=== PATIENT | female | born 1995 | race African-American/Black ===

== ENCOUNTER 2018-07-19 11:29 | Emergency (ER) | payer OTHER, MEDICAID ==
--- NOTE | 2018-07-19 13:15 | ER Document Report ---
ED Medical Screen (RME) - General Chief Complaint: Fainting Stated Complaint: SYNCOPE Time Seen by Provider: 07/19/18 13:13 Notes: Patient is a 22-year-old female, , 13 weeks gravid that presents to the emergency department for chief complaint of black out episode. Patient states she had a similar episode about 2 weeks ago, and then again today while she was at her chemistry class, she did not fall or hit her head, she was seen previo usly for this and did not have an answer of why it was occurring. Denies having any pain at this time. ROS: Other than noted above, the 12 point review of systems was reviewed with the patient and were negative, all pertinent findings are included in the HPI. PHYSICAL EXAMINATION: Vital signs reviewed. GENERAL: Well-appearing, well-nourished and in no acute distress. HEAD: Atraumatic, normocephalic. EYES: Pupils equal round extraocular movements intact, conjunctiva are normal. ENT: Nares patent NECK: Normal range of motion CV: Heart regular rate and rhythm LUNGS: No respiratory distress Musculoskeletal: Normal range of motion NEUROLOGICAL: Normal speech PSYCH: Normal mood, normal affect. MDM: Patient seen and examined for rapid initial assessment. Vital signs reviewed. A comprehensive ED assessment and evaluation of the patient, analysis of test results and completion of the medical decision making process will be conducted by additional ED providers. *Note is created using voice recognition software and may contain spelling, syntax or grammatical errors. TRAVEL OUTSIDE OF THE [place] IN LAST 30 DAYS: No - Related Data Allergies/Adverse Reactions: cephalexin [From Keflex] Allergy (Verified 07/19/18 11:32) Penicillins Allergy (Verified 07/19/18 11:32) Past Medical History - Social History Chew tobacco use (# tins/day): No Frequency of alcohol use: None Drug Abuse: None Renal/ Medical History: Denies: Hx Peritoneal Dialysis Physical Exam - Vital signs Vitals: Temp Pulse Resp BP Pulse Ox 98.3 F 94 16 119/75 100 07/19/18 11:53 07/19/18 11:53 07/19/18 11:53 07/19/18 11:53 07/19/18 11:53 Course - Vital Signs Vital signs: Temp Pulse Resp BP Pulse Ox 98.3 F 94 16 119/75 100 07/19/18 11:53 07/19/18 11:53 07/19/18 13:04 07/19/18 11:53 07/19/18 11:53
[2018-07-19 13:30] LABS: APPEARANCE,URINE CLEAR; BILIRUBIN,URINE NEGATIVE (NEGATIVE); COLOR,URINE STRAW; GLUCOSE, URINE NEGATIVE (NEGATIVE); KETONES,URINE NEGATIVE (NEGATIVE); LEUKOCYTE ESTERASE,URINE NEGATIVE (NEGATIVE); NITRITE,URINE NEGATIVE (NEGATIVE); PROTEIN,URINE NEGATIVE (NEGATIVE); URINE SPECIFIC GRAVITY 1.008; UROBILINOGEN,URINE NEGATIVE mg/dL (<2.0)
[2018-07-19] MEDS ORDERED: RINGERS SOLUTION,LACTATED 1,000 ML IV ONE (14:37)
[2018-07-19 14:56] LABS: ALANINE AMINOTRANSFERASE 45 U/L (9-52); ALBUMIN 3.8 g/dL (3.5-5.0); ALKALINE PHOSPHATASE 53 U/L (38-126); ANION GAP 7 (5-19); ASPARTATE AMINO TRANSFERASE 31 U/L (14-36); BILIRUBIN,DIRECT 0.3 mg/dL (0.0-0.4); BILIRUBIN,TOTAL 0.4 mg/dL (0.2-1.3); BLOOD UREA NITROGEN 7 mg/dL (7-20); CALCIUM 9.1 mg/dL (8.4-10.2); CARBON DIOXIDE 21 mmol/L (22-30); CHLORIDE 108 mmol/L (98-107); GLUCOSE 86 mg/dL (75-110); POTASSIUM 4.9 mmol/L (3.6-5.0); SODIUM 135.8 mmol/L (137-145)
[2018-07-19 15:09] LABS: FREE T4 (FREE THYROXINE) 1.02 ng/dL (0.78-2.19)
--- NOTE | 2018-07-19 15:22 | ER Document Report ---
ED General - General Chief Complaint: Fainting Stated Complaint: SYNCOPE Time Seen by Provider: 07/19/18 13:13 Primary Care Provider: RODOLFO HARRISON MD [Primary Care Provider] - Follow up as needed Mode of Arrival: Ambulatory Information source: Patient, [facility] Records Notes: 22-year-old female with no reported past medical history at approximately 13 weeks per last menstrual period presents after a syncopal episode. Patient states that this has occurred multiple times since . She has discussed this with her OB but after a normal EKG she states no further workup was performed. Patient denies recent illness, fever, chills, persistent vomiting. Patient states that she was sitting in chemistry class when it happened. She does report preceding chest pressure prior to this event that lasted approximately 10 seconds and resolved. Patient denies any leg swelling, shortness of breath, prior history of PE, DVT. She states she was passed out for approximately 5 seconds. [facility] She reports multiple ultrasounds that showed an intrauterine . She states in the beginning of her she was suffering from significant abdominal pain which caused him to consistently monitor the . Patient denies any abdominal pain today or vaginal bleeding. TRAVEL OUTSIDE OF THE [place] IN LAST 30 DAYS: No - HPI Onset: Just prior to arrival Onset/Duration: Sudden Quality of pain: No pain Severity: None Pain Level: Denies Associated symptoms: denies: Chest pain, Nonproductive cough, Diarrhea, Fever, Leg swelling, Nausea, Vomiting, Shortness of breath, Sore throat, Sweating, Weakness - Related Data Allergies/Adverse Reactions: cephalexin [From Keflex] Allergy (Verified 07/19/18 11:32) Penicillins Allergy (Verified 07/19/18 11:32) Past Medical History - General Information source: Patient, [facility] Records - Social History Smoking Status: Never Smoker Chew tobacco use (# tins/day): No Frequency of alcohol use: None Drug Abuse: None Lives with: Spouse/Significant other Family History: Reviewed & Not Pertinent Patient has suicidal ideation: No Patient has homicidal ideation: No - Medical History Medical History: Negative Renal/ Medical History: Denies: Hx Peritoneal Dialysis Review of Systems - Review of Systems Notes: REVIEW OF SYSTEMS: CONSTITUTIONAL : Denies fever, chills, or sweats. Denies recent illness. Denies weight loss, recent hospitalizations. EENT: Denies visual changes, eye pain. Denies sore throat, oral lesions, difficulty swallowing. CARDIOVASCULAR: Denies palpitations. Denies lower extremity edema. RESPIRATORY: Denies cough. Denies shortness of breath, wheezing. GASTROINTESTINAL: Denies abdominal pain or distention. Denies nausea, vomiting, or diarrhea. Denies blood in vomitus, stools, or per rectum. Denies black, tarry stools. Denies constipation. GENITOURINARY: Denies difficulty urinating, painful urination, frequency, blood in urine, or vaginal discharge. MUSCULOSKELETAL: Denies back or neck pain or stiffness. Denies joint pain or swelling. SKIN: Denies rash, lesions or sores. HEMATOLOGIC : Denies easy bruising or bleeding. LYMPHATIC: Denies swollen glands. NEUROLOGICAL: Denies confusion or altered mental status. Denies dizziness or lightheadedness. Denies headache. Denies weakness or paralysis. Denies problems difficulty with ambulation, slurred speech. Denies sensory loss, numbness, or tingling. Denies seizures. PSYCHIATRIC: Denies anxiety or stress. Denies depression, suicidal ideation, or homicidal ideation. Denies visual or auditory hallucinations. Physical Exam - Vital signs Vitals: Temp Pulse Resp BP Pulse Ox 98.3 F 94 16 119/75 100 07/19/18 11:53 07/19/18 11:53 07/19/18 11:53 07/19/18 11:53 07/19/18 11:53 - Notes Notes: PHYSICAL EXAMINATION: GENERAL: Well-appearing, well-nourished and in no acute distress. HEAD: Atraumatic, normocephalic. EYES: Pupils equal round and reactive to light, extraocular movements intact, conjunctiva are normal. ENT: Nares patent, oropharynx clear without exudates. Moist mucous membranes. NECK: Normal range of motion, supple without lymphadenopathy LUNGS: Breath sounds clear to auscultation bilaterally and equal. No wheezes rales or rhonchi. HEART: Regular rate and rhythm without murmurs ABDOMEN: Soft, nontender, nondistended abdomen. No guarding, no rebound. No masses appreciated. Female : deferred Musculoskeletal: Normal range of motion, no pitting or edema. No cyanosis. NEUROLOGICAL: Cranial nerves grossly intact. Normal speech, normal gait. Normal sensory, motor exams PSYCH: Normal mood, normal affect. SKIN: Warm, Dry, normal turgor, no rashes or lesions noted. Course - Re-evaluation Re-evalutation: Temp Pulse Resp BP Pulse Ox 98.3 F 86 16 120/75 100 07/19/18 11:53 07/19/18 14:35 07/19/18 13:04 07/19/18 14:35 07/19/18 11:53 Laboratory 07/19/18 07/19/18 07/19/18 12:15 14:28 14:28 WBC Cancelled RBC Cancelled Hgb Cancelled Hct Cancelled MCV Cancelled MCH Cancelled MCHC Cancelled RDW Cancelled Plt Count Cancelled Seg Neutrophils % Cancelled Lymphocytes % Cancelled Monocytes % Cancelled Eosinophils % Cancelled Basophils % Cancelled Absolute Neutrophils Cancelled Absolute Lymphocytes Cancelled Absolute Monocytes Cancelled Absolute Eosinophils Cancelled Absolute Basophils Cancelled Platelet Estimate Cancelled Sodium 135.8 L Potassium 4.9 Chloride 108 H Carbon Dioxide 21 L Anion Gap 7 BUN 7 Creatinine 0.38 L Est GFR ( Amer) > 60 Est GFR (Non-Af Amer) > 60 Glucose 86 Calcium 9.1 Magnesium 1.8 Total Bilirubin 0.4 Direct Bilirubin 0.3 Neonat Total Bilirubin Not Reportable Neonat Direct Bilirubin Not Reportable Neonat Indirect Bili Not Reportable AST 31 ALT 45 Alkaline Phosphatase 53 Troponin I Total Protein 7.0 Albumin 3.8 TSH Free T4 Urine Color STRAW Urine Appearance CLEAR Urine pH 6.0 Ur Specific Ola 1.008 Urine Protein NEGATIVE Urine Glucose (UA) NEGATIVE Urine Ketones NEGATIVE Urine Blood NEGATIVE Urine Nitrite NEGATIVE Urine Bilirubin NEGATIVE Urine Urobilinogen NEGATIVE Ur Leukocyte Esterase NEGATIVE Urine WBC (Auto) 1 Urine RBC (Auto) 0 Squamous Epi Cells Auto 1 Urine Mucus (Auto) RARE Urine Ascorbic Acid NEGATIVE Slides for Path Review Cancelled 07/19/18 07/19/18 07/19/18 14:28 15:15 15:15 WBC 8.9 RBC 4.42 Hgb 12.8 Hct 36.9 MCV 84 MCH 28.9 MCHC 34.6 RDW 13.6 Plt Count 276 Seg Neutrophils % 71.6 Lymphocytes % 20.6 Monocytes % 6.9 Eosinophils % 0.7 Basophils % 0.2 Absolute Neutrophils 6.4 Absolute Lymphocytes 1.8 Absolute Monocytes 0.6 Absolute Eosinophils 0.1 Absolute Basophils 0.0 Platelet Estimate Sodium Potassium Chloride Carbon Dioxide Anion Gap BUN Creatinine Est GFR ( Amer) Est GFR (Non-Af Amer) Glucose Calcium Magnesium Total Bilirubin Direct Bilirubin Neonat Total Bilirubin Neonat Direct Bilirubin Neonat Indirect Bili AST ALT Alkaline Phosphatase Troponin I < 0.012 Total Protein Albumin TSH 1.47 Free T4 1.02 Urine Color Urine Appearance Urine pH Ur Specific Ola Urine Protein Urine Glucose (UA) Urine Ketones Urine Blood Urine Nitrite Urine Bilirubin Urine Urobilinogen Ur Leukocyte Esterase Urine WBC (Auto) Urine RBC (Auto) Squamous Epi Cells Auto Urine Mucus (Auto) Urine Ascorbic Acid Slides for Path Review Temp Pulse Resp BP Pulse Ox 98.3 F 86 16 120/75 100 07/19/18 11:53 07/19/18 14:35 07/19/18 13:04 07/19/18 14:35 07/19/18 14:35 07/19/18 15:21 22-year-old female presents after a syncopal episode while at school. Vital signs reviewed and within normal limits. Patient is orthostatic positive. Patient denies any black or bloody stools. Patient does have a history of anemia but today hemoglobin is stable. IV fluids administered. EKG does show the patient to be in normal sinus rhythm at a rate of 85. QTc 424 QRS 86. No evidence of ischemia, ST elevation. CBC, CMP, cardiac enzymes, thyroid levels are within normal limits. Patient did receive IV fluids. I am reevaluation she states that she is feeling much better. I advised that the patient should not drive until reevaluated by her primary care physician and OB. Patient denies any abdominal pain, vaginal bleeding. Patient encouraged to drink more fluids, eat more regularly. On reevaluation patient is eating, normally. She is requesting discharge home. Patient was evaluated and treated as appropriate for the patient's presenting symptoms and complaint, with consideration of any critical or life threatening conditions that may be associated with their obtained history and exam as noted above. All results were discussed with patient and her significant other who is at the bedside. Patient provided the opportunity to ask questions, and express concerns. Patient was educated on treatments based on their presumed diagnosis as noted above. At this time we will discharge the patient with return precautions and follow-up recommendations. Verbal discharge instructions given a the bedside. Medication warnings reviewed. Patient is in agreement with this plan and has verbalized understanding of return precautions. After careful consideration I feel that that patient can be safely discharged from the emergency department, they were advised to followup with a primary care physician in 2-3 days. Dictation on this chart was performed using voice recognition software and may result in unintended grammatical, spelling, syntax or errors. 07/20/18 00:48 - Vital Signs Vital signs: Temp Pulse Resp BP Pulse Ox 98.3 F 86 16 120/75 100 07/19/18 11:53 07/19/18 14:35 07/19/18 13:04 07/19/18 14:35 07/19/18 14:35 - Laboratory Result Diagrams: 07/19/18 15:15 07/19/18 14:28 Laboratory results interpreted by me: 07/19/18 14:28 Sodium 135.8 L Chloride 108 H Carbon Dioxide 21 L Creatinine 0.38 L - EKG Interpretation by Me EKG shows normal: Sinus rhythm Rate: Normal Rhythm: NSR When compared to previous EKG there are: No significant change Discharge - Discharge Clinical Impression: Orthostatic hypotension, Second trimester Syncope Qualifiers: Syncope type: unspecified Qualified Code(s): R55 - Syncope and collapse Condition: Good Disposition: HOME, SELF-CARE Instructions: Orthostatic Hypotension ([facility]), Syncopal Episode ([facility]) Additional Instructions: Please drink plenty of fluids. Please do not drive until reevaluated by OB and your primary care physician. Please return with any abdominal pain, vaginal bleeding or any other symptoms concerning to you. Referrals: RODOLFO HARRISON MD [Primary Care Provider] - Follow up as needed
[2018-07-19 15:23] LABS: THYROID STIMULATING HORMONE 1.47 uIU/mL (0.47-4.68)
[2018-07-19 15:39] LABS: ABSOLUTE EOSINOPHILS # (AUTO) 0.1 10^3/uL (0.0-0.6); ABSOLUTE LYMPHOCYTES (AUTO) 1.8 10^3/uL (0.5-4.7); ABSOLUTE MONOCYTES (AUTO) 0.6 10^3/uL (0.1-1.4); ABSOLUTE NEUT (AUTO) 6.4 10^3/uL (1.7-8.2); BASOPHILS % (AUTO) 0.2 % (0-2); EOSINOPHILS % (AUTO) 0.7 % (0-6); HEMATOCRIT 36.9 % (36.0-47.0); HEMOGLOBIN 12.8 g/dL (12.0-15.5); LYMPHOCYTES % (AUTO) 20.6 % (13-45); MEAN CORPUSCULAR HEMOGLOBIN 28.9 pg (27.0-33.4); MEAN CORPUSCULAR HGB CONC 34.6 g/dL (32.0-36.0); MEAN CORPUSCULAR VOLUME 84 fl (80-97); MONOCYTES % (AUTO) 6.9 % (3-13); PLATELET COUNT 276 10^3/uL (150-450); RED BLOOD COUNT 4.42 10^6/uL (3.72-5.28); RED CELL DISTRIBUTION WIDTH 13.6 % (11.5-14.0); SEGMENTED NEUTROPHILS % (AUTO) 71.6 % (42-78); TOTAL CELLS COUNTED % (AUTO) 100 %; WHITE BLOOD COUNT 8.9 10^3/uL (4.0-10.5)
[2018-07-19 17:24] VITALS: BP 107/92
--- NOTE | 2018-07-19 21:47 | EKG REPORT ---
SEVERITY:- NORMAL ECG - SINUS RHYTHM : Confirmed by: Farida Garzon MD 19-Jul-2018 21:47:00
== END 2018-07-19 17:00 | disposition home or self-care (01) ==
LOC: ER 11:29
DX: O26.92 Pregnancy related conditions, unspecified, second trimester (principal); I95.1 Orthostatic hypotension; Z3A.13 13 weeks gestation of pregnancy; Z88.0 Allergy status to penicillin
CPT/HCPCS: 93005; 99284; 96360; 36415; 84439; 83735; 84443; 85025; 80053; 81001; 84484; 93010; J7120

== ENCOUNTER 2018-09-03 06:32 | Outpatient (CLI) | payer MEDICAID ==
[2018-09-03 08:03] LABS: APPEARANCE,URINE SLIGHTLY-CLOUDY; BILIRUBIN,URINE NEGATIVE (NEGATIVE); COLOR,URINE YELLOW; GLUCOSE, URINE NEGATIVE (NEGATIVE); KETONES,URINE NEGATIVE (NEGATIVE); LEUKOCYTE ESTERASE,URINE SMALL (NEGATIVE); NITRITE,URINE NEGATIVE (NEGATIVE); PROTEIN,URINE NEGATIVE (NEGATIVE); URINE SPECIFIC GRAVITY 1.018
[2018-09-03 08:20] LABS: URINE AMPHETAMINES SCREEN NEGATIVE; URINE BARBITURATES SCREEN NEGATIVE; URINE BENZODIAZEPINES SCREEN NEGATIVE; URINE COCAINE SCREEN NEGATIVE; URINE MARIJUANA (THC) SCREEN NEGATIVE; URINE METHADONE SCREEN NEGATIVE; URINE PHENCYCLIDINE SCREEN NEGATIVE
[2018-09-03] MEDS ORDERED: HYDROXYZINE PAMOATE 50 MG CAPSULE PO ONE (08:21)
[2018-09-03] MEDS ORDERED: HYDROXYZINE PAMOATE 50 MG CAPSULE ONE (08:24)
== END 2018-09-03 08:50 | disposition home or self-care (01) ==
LOC: LC 06:32
PROVIDERS: ATTEND Obstetrics & Gynecology
PROC: 4A1HXCZ Monitoring of Products of Conception, Cardiac Rate, External Approach (ICD-10-PCS; principal; 2018-09-03)
DX: O26.892 Other specified pregnancy related conditions, second trimester (principal); E86.0 Dehydration; Z3A.20 20 weeks gestation of pregnancy
CPT/HCPCS: 81001; 80307; 59899; J3490

== ENCOUNTER 2018-10-08 05:27 | Outpatient (CLI) | payer MEDICAID ==
[2018-10-08 05:59] LABS: APPEARANCE,URINE SLIGHTLY-CLOUDY; BILIRUBIN,URINE NEGATIVE (NEGATIVE); COLOR,URINE YELLOW; GLUCOSE, URINE NEGATIVE (NEGATIVE); KETONES,URINE NEGATIVE (NEGATIVE); LEUKOCYTE ESTERASE,URINE TRACE (NEGATIVE); NITRITE,URINE NEGATIVE (NEGATIVE); PROTEIN,URINE NEGATIVE (NEGATIVE); URINE SPECIFIC GRAVITY 1.016; UROBILINOGEN,URINE NEGATIVE mg/dL (<2.0)
[2018-10-08 06:13] LABS: URINE AMPHETAMINES SCREEN NEGATIVE; URINE BARBITURATES SCREEN NEGATIVE; URINE BENZODIAZEPINES SCREEN NEGATIVE; URINE COCAINE SCREEN NEGATIVE; URINE MARIJUANA (THC) SCREEN NEGATIVE; URINE METHADONE SCREEN NEGATIVE; URINE PHENCYCLIDINE SCREEN NEGATIVE
== END 2018-10-08 06:36 | disposition home or self-care (01) ==
LOC: LC 05:27
PROVIDERS: ATTEND Obstetrics & Gynecology Gynecology
PROC: 4A1HXCZ Monitoring of Products of Conception, Cardiac Rate, External Approach (ICD-10-PCS; principal; 2018-10-08)
DX: O47.02 False labor before 37 completed weeks of gestation, second trimester (principal); Z3A.25 25 weeks gestation of pregnancy
CPT/HCPCS: 59025; 80307; 81001

== ENCOUNTER 2018-11-08 15:25 | Outpatient (CLI) | payer MEDICAID ==
[2018-11-08 16:20] LABS: APPEARANCE,URINE SLIGHTLY-CLOUDY; BILIRUBIN,URINE NEGATIVE (NEGATIVE); COLOR,URINE YELLOW; GLUCOSE, URINE NEGATIVE (NEGATIVE); KETONES,URINE NEGATIVE (NEGATIVE); LEUKOCYTE ESTERASE,URINE NEGATIVE (NEGATIVE); NITRITE,URINE NEGATIVE (NEGATIVE); PROTEIN,URINE NEGATIVE (NEGATIVE); URINE SPECIFIC GRAVITY 1.011; UROBILINOGEN,URINE NEGATIVE mg/dL (<2.0)
[2018-11-08 16:37] LABS: URINE AMPHETAMINES SCREEN NEGATIVE; URINE BARBITURATES SCREEN NEGATIVE; URINE BENZODIAZEPINES SCREEN NEGATIVE; URINE COCAINE SCREEN NEGATIVE; URINE MARIJUANA (THC) SCREEN NEGATIVE; URINE METHADONE SCREEN NEGATIVE; URINE PHENCYCLIDINE SCREEN NEGATIVE
[2018-11-08] MEDS ORDERED: HYDROXYZINE PAMOATE 50 MG CAPSULE ONE (16:37)
[2018-11-08] MEDS ORDERED: HYDROXYZINE PAMOATE 50 MG CAPSULE PO ONE (16:38)
== END 2018-11-08 16:49 | disposition home or self-care (01) ==
LOC: LC 15:25
PROVIDERS: ATTEND Obstetrics & Gynecology
PROC: 4A1HXCZ Monitoring of Products of Conception, Cardiac Rate, External Approach (ICD-10-PCS; principal; 2018-11-08)
DX: Z34.93 Encounter for supervision of normal pregnancy, unspecified, third trimester (principal)
CPT/HCPCS: 59899; 81001; 80307; J3490

== ENCOUNTER 2018-11-20 05:57 | Outpatient (CLI) | payer MEDICAID ==
[2018-11-20 06:50] LABS: APPEARANCE,URINE CLEAR; BILIRUBIN,URINE NEGATIVE (NEGATIVE); COLOR,URINE YELLOW; GLUCOSE, URINE NEGATIVE (NEGATIVE); KETONES,URINE NEGATIVE (NEGATIVE); LEUKOCYTE ESTERASE,URINE LARGE (NEGATIVE); NITRITE,URINE NEGATIVE (NEGATIVE); PROTEIN,URINE NEGATIVE (NEGATIVE); URINE SPECIFIC GRAVITY > 1.060
[2018-11-20] MEDS ORDERED: RINGERS SOLUTION,LACTATED 2,000 ML IV ONE (06:57)
[2018-11-20] MEDS ORDERED: CEFTRIAXONE 1 GM/D5W RTU 1 GM/50 ML RTUPB IV ONE (06:58)
[2018-11-20] MEDS ORDERED: NITROFURANTOIN MONOHYD/M-CRYST 100 MG CAPSULE PO ONE (07:06)
[2018-11-20 07:24] LABS: URINE AMPHETAMINES SCREEN NEGATIVE; URINE BARBITURATES SCREEN NEGATIVE; URINE BENZODIAZEPINES SCREEN NEGATIVE; URINE COCAINE SCREEN NEGATIVE; URINE MARIJUANA (THC) SCREEN NEGATIVE; URINE METHADONE SCREEN NEGATIVE; URINE PHENCYCLIDINE SCREEN NEGATIVE
[2018-11-20 07:38] LABS: ABSOLUTE LYMPHOCYTES (AUTO) 1.7 10^3/uL (0.5-4.7); ABSOLUTE MONOCYTES (AUTO) 0.6 10^3/uL (0.1-1.4); ABSOLUTE NEUT (AUTO) 4.8 10^3/uL (1.7-8.2); BASOPHILS % (AUTO) 0.3 % (0-2); EOSINOPHILS % (AUTO) 0.7 % (0-6); HEMATOCRIT 33.6 % (36.0-47.0); HEMOGLOBIN 11.4 g/dL (12.0-15.5); LYMPHOCYTES % (AUTO) 23.5 % (13-45); MEAN CORPUSCULAR HEMOGLOBIN 28.2 pg (27.0-33.4); MEAN CORPUSCULAR HGB CONC 33.9 g/dL (32.0-36.0); MEAN CORPUSCULAR VOLUME 83 fl (80-97); MONOCYTES % (AUTO) 8.2 % (3-13); PLATELET COUNT 233 10^3/uL (150-450); RED BLOOD COUNT 4.04 10^6/uL (3.72-5.28); SEGMENTED NEUTROPHILS % (AUTO) 67.3 % (42-78); TOTAL CELLS COUNTED % (AUTO) 100 %; WHITE BLOOD COUNT 7.2 10^3/uL (4.0-10.5)
[2018-11-20] MEDS ORDERED: NITROFURANTOIN MONOHYD/M-CRYST 100 MG CAPSULE ONE (07:52)
[2018-11-20 07:57] LABS: ALANINE AMINOTRANSFERASE 34 U/L (9-52); ALKALINE PHOSPHATASE 76 U/L (38-126); ANION GAP 5 (5-19); ASPARTATE AMINO TRANSFERASE 19 U/L (14-36); BILIRUBIN,DIRECT 0.1 mg/dL (0.0-0.4); BILIRUBIN,TOTAL 0.2 mg/dL (0.2-1.3); BLOOD UREA NITROGEN 3 mg/dL (7-20); CALCIUM 8.7 mg/dL (8.4-10.2); CARBON DIOXIDE 24 mmol/L (22-30); CHLORIDE 107 mmol/L (98-107); GLUCOSE 92 mg/dL (75-110); SODIUM 136.2 mmol/L (137-145); TOTAL PROTEIN 5.9 g/dL (6.3-8.2)
== END 2018-11-20 09:06 | disposition home or self-care (01) ==
LOC: LC 05:57
PROVIDERS: ATTEND Obstetrics & Gynecology
PROC: 4A1HXCZ Monitoring of Products of Conception, Cardiac Rate, External Approach (ICD-10-PCS; principal; 2018-11-20)
DX: O47.03 False labor before 37 completed weeks of gestation, third trimester (principal); Z3A.31 31 weeks gestation of pregnancy
CPT/HCPCS: 36415; 87086; 85025; 80053; 81001; 80307; 59899; J3490; J8499

== ENCOUNTER 2018-12-12 12:12 | Outpatient (CLI) | payer MEDICAID ==
[2018-12-12 13:10] LABS: AMORPHOUS SEDIMENT,URINE TRACE /HPF; APPEARANCE,URINE CLEAR; BILIRUBIN,URINE NEGATIVE (NEGATIVE); COLOR,URINE YELLOW; GLUCOSE, URINE NEGATIVE (NEGATIVE); KETONES,URINE NEGATIVE (NEGATIVE); LEUKOCYTE ESTERASE,URINE LARGE (NEGATIVE); NITRITE,URINE NEGATIVE (NEGATIVE); PROTEIN,URINE NEGATIVE (NEGATIVE); URINE SPECIFIC GRAVITY 1.014; UROBILINOGEN,URINE NEGATIVE mg/dL (<2.0)
[2018-12-12 13:16] LABS: URINE AMPHETAMINES SCREEN NEGATIVE; URINE BARBITURATES SCREEN NEGATIVE; URINE BENZODIAZEPINES SCREEN NEGATIVE; URINE COCAINE SCREEN NEGATIVE; URINE MARIJUANA (THC) SCREEN NEGATIVE; URINE METHADONE SCREEN NEGATIVE; URINE PHENCYCLIDINE SCREEN NEGATIVE
--- NOTE | 2018-12-12 14:40 | Non Stress Test Report ---
Non Stress Test Datetime Report Generated by CPN: 12/12/2018 14:40 DEMOGRAPHIC EGA NST: 34.3 INDICATION Indication for Study: Ordered by Provider Indication for Study (NST) Other: Labor Check MONITORING Monitor Explained: Monitor Explained; Test Explained; Patient Verbalized Understanding Time on Monitor: 12/12/2018 12:27 Time off Monitor: 12/12/2018 14:27 NST Duration: 120 NST INTERVENTIONS NST Interventions: PO Hydration; Reposition Patient Physician Notified NST: Younger BABY A: [id number] Movement : Present Contraction Frequency : irregular FHR Baseline : 135 Accelerations : 15X15 Accelerations : 15X15 Decelerations : None Variability : Moderate 6-25bpm NST Review: Meets Criteria for Reactive NST NST Review and Verified By : Ephraim Salinas RN NST Results: Reactive NST REPORT Report Trigger: Send Report
== END 2018-12-12 14:59 | disposition home or self-care (01) ==
LOC: LC 12:12
PROVIDERS: ATTEND Obstetrics & Gynecology
PROC: 4A1HXCZ Monitoring of Products of Conception, Cardiac Rate, External Approach (ICD-10-PCS; principal; 2018-12-12)
DX: Z34.93 Encounter for supervision of normal pregnancy, unspecified, third trimester (principal)
CPT/HCPCS: 59025; 80307; 81001

== ENCOUNTER 2018-12-28 06:32 | Outpatient (CLI) | payer MEDICAID ==
--- NOTE | 2018-12-28 08:16 | Non Stress Test Report ---
Non Stress Test Datetime Report Generated by CPN: 12/28/2018 08:16 DEMOGRAPHIC EGA NST: 36.5 INDICATION Indication for Study: Ordered by Provider MONITORING Monitor Explained: Monitor Explained; Test Explained; Patient Verbalized Understanding Time on Monitor: 12/28/2018 06:43 Time off Monitor: 12/28/2018 08:05 NST Duration: 82 NST INTERVENTIONS NST Interventions: PO Hydration Physician Notified NST: Dr. Nitin BABY A: [id number] BABY A Movement : Present Contraction Frequency : occ FHR Baseline : 135 Accelerations : 15X15 Decelerations : None Variability : Moderate 6-25bpm NST Review: Meets Criteria for Reactive NST NST Review and Verified By : Lisbet aHgenavaselina RN NST Results: Reactive NST REPORT Report Trigger: Send Report
== END 2018-12-28 08:22 | disposition home or self-care (01) ==
LOC: LC 06:32
PROVIDERS: ATTEND Obstetrics & Gynecology
PROC: 4A1HXCZ Monitoring of Products of Conception, Cardiac Rate, External Approach (ICD-10-PCS; principal; 2018-12-28)
DX: O47.03 False labor before 37 completed weeks of gestation, third trimester (principal); Z3A.36 36 weeks gestation of pregnancy

== ENCOUNTER 2018-12-31 19:04 | Outpatient (CLI) | payer MEDICAID ==
[2018-12-31 19:37] LABS: APPEARANCE,URINE CLEAR; BILIRUBIN,URINE NEGATIVE (NEGATIVE); COLOR,URINE YELLOW; GLUCOSE, URINE NEGATIVE (NEGATIVE); KETONES,URINE TRACE mg/dL (NEGATIVE); LEUKOCYTE ESTERASE,URINE TRACE (NEGATIVE); NITRITE,URINE NEGATIVE (NEGATIVE); PROTEIN,URINE NEGATIVE (NEGATIVE); URINE SPECIFIC GRAVITY 1.014
[2018-12-31 20:06] LABS: URINE AMPHETAMINES SCREEN NEGATIVE; URINE BARBITURATES SCREEN NEGATIVE; URINE BENZODIAZEPINES SCREEN NEGATIVE; URINE COCAINE SCREEN NEGATIVE; URINE MARIJUANA (THC) SCREEN NEGATIVE; URINE METHADONE SCREEN NEGATIVE; URINE PHENCYCLIDINE SCREEN NEGATIVE
--- NOTE | 2018-12-31 22:05 | Non Stress Test Report ---
Non Stress Test Datetime Report Generated by CPN: 12/31/2018 22:05 DEMOGRAPHIC EGA NST: 37.1 INDICATION Indication for Study: Ordered by Provider URINE RESULTS Urine Protein, NST: Negative Urine Ketones - NST: Positive Urine Glucose - NST: Negative Urine Blood - NST: Negative MONITORING Monitor Explained: Monitor Explained; Test Explained; Patient Verbalized Understanding Time on Monitor: 12/31/2018 19:29 Time off Monitor: 12/31/2018 21:16 NST Duration: 107 NST INTERVENTIONS NST Interventions: PO Hydration Physician Notified NST: Dr. Shipman BABY A: [id number] BABY A Movement : Present Contraction Frequency : rare FHR Baseline : 135 Accelerations : 15X15 Decelerations : None Variability : Moderate 6-25bpm NST Review: Questionable if Meets Criteria for Reactive NST NST Review and Verified By : Jerardo Gonzalez RN NST Results: Reactive NST REPORT Report Trigger: Send Report
== END 2018-12-31 21:49 | disposition home or self-care (01) ==
LOC: LC 19:04
PROVIDERS: ATTEND Obstetrics & Gynecology
PROC: 4A1HXCZ Monitoring of Products of Conception, Cardiac Rate, External Approach (ICD-10-PCS; principal; 2018-12-31)
DX: O47.1 False labor at or after 37 completed weeks of gestation (principal); Z3A.37 37 weeks gestation of pregnancy
CPT/HCPCS: 59025; 80307; 81005; 84112

== ENCOUNTER 2019-01-06 14:44 | Outpatient (CLI) | payer MEDICAID ==
[2019-01-06 15:17] LABS: APPEARANCE,URINE SLIGHTLY-CLOUDY; BILIRUBIN,URINE NEGATIVE (NEGATIVE); COLOR,URINE YELLOW; GLUCOSE, URINE NEGATIVE (NEGATIVE); KETONES,URINE 20 mg/dL (NEGATIVE); LEUKOCYTE ESTERASE,URINE SMALL (NEGATIVE); NITRITE,URINE NEGATIVE (NEGATIVE); PROTEIN,URINE NEGATIVE (NEGATIVE); URINE SPECIFIC GRAVITY 1.011; UROBILINOGEN,URINE NEGATIVE mg/dL (<2.0)
[2019-01-06 15:34] LABS: URINE AMPHETAMINES SCREEN NEGATIVE; URINE BARBITURATES SCREEN NEGATIVE; URINE BENZODIAZEPINES SCREEN NEGATIVE; URINE COCAINE SCREEN NEGATIVE; URINE MARIJUANA (THC) SCREEN NEGATIVE; URINE METHADONE SCREEN NEGATIVE; URINE PHENCYCLIDINE SCREEN NEGATIVE
== END 2019-01-06 16:12 | disposition home or self-care (01) ==
LOC: LC 14:44
PROVIDERS: ATTEND Obstetrics & Gynecology Gynecology
PROC: 4A1HXCZ Monitoring of Products of Conception, Cardiac Rate, External Approach (ICD-10-PCS; principal; 2019-01-06)
DX: O47.1 False labor at or after 37 completed weeks of gestation (principal); Z3A.38 38 weeks gestation of pregnancy
CPT/HCPCS: 59025; 80307; 81005

== ENCOUNTER 2019-01-07 20:53 | Outpatient (CLI) | payer MEDICAID ==
--- NOTE | 2019-01-07 20:58 | Non Stress Test Report ---
Non Stress Test Datetime Report Generated by CPN: 01/07/2019 20:57 DEMOGRAPHIC Test Number: 4 EGA NST: 38.0 INDICATION Indication for Study: Other Indication for Study (NST) Other: lc MONITORING Monitor Explained: Monitor Explained; Test Explained; Patient Verbalized Understanding Time on Monitor: 01/06/2019 15:20 Time off Monitor: 01/06/2019 15:51 NST Duration: 31 NST INTERVENTIONS NST Interventions: PO Hydration; Reposition Patient Physician Notified NST: N Miller CNM BABY A: [id number] BABY A Movement : Present Contraction Frequency : rare FHR Baseline : 135 Accelerations : 15X15 Decelerations : None Variability : Moderate 6-25bpm NST Review: Meets Criteria for Reactive NST NST Review and Verified By : Tara Araujo RN NST Results: Reactive NST REPORT Report Trigger: Send Report
[2019-01-07 21:30] LABS: APPEARANCE,URINE CLEAR; BILIRUBIN,URINE NEGATIVE (NEGATIVE); COLOR,URINE YELLOW; GLUCOSE, URINE NEGATIVE (NEGATIVE); KETONES,URINE NEGATIVE (NEGATIVE); LEUKOCYTE ESTERASE,URINE SMALL (NEGATIVE); NITRITE,URINE NEGATIVE (NEGATIVE); PROTEIN,URINE NEGATIVE (NEGATIVE); URINE SPECIFIC GRAVITY 1.013; UROBILINOGEN,URINE NEGATIVE mg/dL (<2.0)
[2019-01-07 21:50] LABS: URINE AMPHETAMINES SCREEN NEGATIVE; URINE BARBITURATES SCREEN NEGATIVE; URINE BENZODIAZEPINES SCREEN NEGATIVE; URINE COCAINE SCREEN NEGATIVE; URINE MARIJUANA (THC) SCREEN NEGATIVE; URINE METHADONE SCREEN NEGATIVE; URINE PHENCYCLIDINE SCREEN NEGATIVE
--- NOTE | 2019-01-07 22:49 | Non Stress Test Report ---
Non Stress Test Datetime Report Generated by CPN: 01/07/2019 22:49 DEMOGRAPHIC EGA NST: 38.1 INDICATION Indication for Study: Ordered by Provider Indication for Study (NST) Other: LC URINE RESULTS Urine Protein, NST: Negative Urine Ketones - NST: Negative Urine Glucose - NST: Negative Urine Blood - NST: Negative MONITORING Monitor Explained: Monitor Explained; Test Explained; Patient Verbalized Understanding Time on Monitor: 01/07/2019 21:10 Time off Monitor: 01/07/2019 22:25 NST Duration: 75 NST INTERVENTIONS NST Interventions: PO Hydration; Other NST Interventions Other: popsicle Physician Notified NST: younger BABY A Movement : Present Contraction Frequency : irregular FHR Baseline : 135 Accelerations : 15X15 Decelerations : None Variability : Moderate 6-25bpm NST Review: Meets Criteria for Reactive NST NST Review and Verified By : Tara Loyola RN NST Results: Reactive NST REPORT Report Trigger: Send Report
== END 2019-01-07 22:32 | disposition home or self-care (01) ==
LOC: LC 20:53
PROVIDERS: ATTEND Obstetrics & Gynecology
PROC: 4A1HXCZ Monitoring of Products of Conception, Cardiac Rate, External Approach (ICD-10-PCS; principal; 2019-01-07)
DX: O47.1 False labor at or after 37 completed weeks of gestation (principal); Z3A.38 38 weeks gestation of pregnancy
CPT/HCPCS: 59025; 80307; 81005

== ENCOUNTER 2019-01-16 03:58 | Inpatient (IN) | payer MEDICAID ==
[2019-01-16 04:30] LABS: APPEARANCE,URINE SLIGHTLY-CLOUDY; BILIRUBIN,URINE NEGATIVE (NEGATIVE); COLOR,URINE YELLOW; GLUCOSE, URINE NEGATIVE (NEGATIVE); KETONES,URINE NEGATIVE (NEGATIVE); LEUKOCYTE ESTERASE,URINE SMALL (NEGATIVE); NITRITE,URINE NEGATIVE (NEGATIVE); PROTEIN,URINE NEGATIVE (NEGATIVE); URINE SPECIFIC GRAVITY 1.016
[2019-01-16] MEDS ORDERED: RINGERS SOLUTION,LACTATED 1,000 ML IV PRN (04:44)
[2019-01-16 04:45] LABS: URINE AMPHETAMINES SCREEN NEGATIVE; URINE BARBITURATES SCREEN NEGATIVE; URINE BENZODIAZEPINES SCREEN NEGATIVE; URINE COCAINE SCREEN NEGATIVE; URINE MARIJUANA (THC) SCREEN NEGATIVE; URINE METHADONE SCREEN NEGATIVE; URINE PHENCYCLIDINE SCREEN NEGATIVE
[2019-01-16 05:11] LABS: ABSOLUTE EOSINOPHILS # (AUTO) 0.1 10^3/uL (0.0-0.6); ABSOLUTE LYMPHOCYTES (AUTO) 2.3 10^3/uL (0.5-4.7); ABSOLUTE MONOCYTES (AUTO) 0.6 10^3/uL (0.1-1.4); ABSOLUTE NEUT (AUTO) 4.6 10^3/uL (1.7-8.2); BASOPHILS % (AUTO) 0.4 % (0-2); EOSINOPHILS % (AUTO) 0.8 % (0-6); HEMATOCRIT 36.7 % (36.0-47.0); HEMOGLOBIN 12.3 g/dL (12.0-15.5); LYMPHOCYTES % (AUTO) 30.4 % (13-45); MEAN CORPUSCULAR HEMOGLOBIN 28.2 pg (27.0-33.4); MEAN CORPUSCULAR HGB CONC 33.6 g/dL (32.0-36.0); MEAN CORPUSCULAR VOLUME 84 fl (80-97); MONOCYTES % (AUTO) 8.2 % (3-13); PLATELET COUNT 185 10^3/uL (150-450); RED BLOOD COUNT 4.37 10^6/uL (3.72-5.28); RED CELL DISTRIBUTION WIDTH 13.6 % (11.5-14.0); SEGMENTED NEUTROPHILS % (AUTO) 60.2 % (42-78); TOTAL CELLS COUNTED % (AUTO) 100 %; WHITE BLOOD COUNT 7.7 10^3/uL (4.0-10.5)
[2019-01-16] MEDS ORDERED: LIDOCAINE 1% INJ-PF (10 MG/ML) 30 ML SDV ONE ×2 (05:17→10:02)
[2019-01-16] MEDS ORDERED: OXYTOCIN/NORMAL SALINE 0 UNIT/0 ML RTUINJ ONE (05:17)
[2019-01-16] MEDS ORDERED: MISOPROSTOL 0.2 MG TABLET ONE ×2 (05:17→10:02)
[2019-01-16] MEDS ORDERED: OXYTOCIN 10 UNIT/ML VIAL ONE ×2 (05:17→10:02)
[2019-01-16] MEDS ORDERED: OXYTOCIN/NORMAL SALINE 20 UNIT/1,000 ML RTUINJ IV PRN (05:19)
[2019-01-16] MEDS ORDERED: ONDANSETRON HCL INJ/PF 4 MG/2 ML SDV ONE ×2 (05:27→08:14)
[2019-01-16] MEDS ORDERED: ONDANSETRON HCL INJ/PF 4 MG/2 ML SDV IV ONE (05:27)
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
[2019-01-16] MEDS ORDERED: EPHEDRINE SULFATE INJ 50 MG/1 ML AMPULE ONE (08:30)
[2019-01-16] MEDS ORDERED: FENTANYL CITRATE INJ/PF 100 MCG/2 ML AMPUL ONE (08:30)
[2019-01-16] MEDS ORDERED: PHENYLEPHRINE HCL INJ/PF 10 MG/1 ML SDV ONE (08:30)
[2019-01-16] MEDS ORDERED: BUPIVACAINE HCL 0.25 % INJ/PF (2.5 MG/1 ML) 30 ML VIAL ONE (08:31)
[2019-01-16] MEDS ORDERED: FENTANYL/BUPIVACAINE/NS/PF 300 MCG/150 ML RTUINJ EPI ONE (08:31)
[2019-01-16] MEDS ORDERED: OXYTOCIN/NORMAL SALINE 20 UNIT/1,000 ML RTUINJ ONE (10:02)
[2019-01-16] MEDS ORDERED: BENZOCAINE/MENTHOL AEROSOL SPRAY 56 ML TOP PRN (14:43)
[2019-01-16] MEDS ORDERED: DIPH/PERTUSS(ACELL)/TETANUS VAC/PF 0.5 ML SYR (>=10YO) IM PRN (14:43)
[2019-01-16] MEDS ORDERED: DIBUCAINE 1% OINTMENT 56 GM TP PRN (14:43)
[2019-01-16] MEDS ORDERED: ZOLPIDEM TARTRATE 5 MG TABLET PO PRN (14:43)
[2019-01-16] MEDS ORDERED: MEASLES,MUMPS&RUBELLA VACC/PF 0.5 ML VIAL SUBCUT PRN (14:43)
[2019-01-16] MEDS: IBUPROFEN 800 MG TABLET PO SCH ×2 (16:09→23:01)
[2019-01-16] MEDS: DOCUSATE SODIUM 100 MG CAPSULE PO SCH (17:25)
[2019-01-16] MEDS ORDERED: IBUPROFEN 800 MG TABLET PO SCH (22:00)
[2019-01-17] MEDS: IBUPROFEN 800 MG TABLET PO SCH ×3 (05:21→21:07)
--- NOTE | 2019-01-17 09:13 | PDOC PROGRESS REPORT ---
Subjective-OB Progress Note for:: 01/17/19 Subjective: Doing well, family at BS, no c/o Physical Exam (OB) Vital Signs: Temp Pulse Resp BP Pulse Ox 97.9 F 76 12 102/61 100 01/17/19 07:38 01/17/19 07:38 01/17/19 07:38 01/17/19 07:38 01/17/19 07:38 - PIH/Pre-Eclampsia Clonus: Negative Headache: Absent Epigastric Pain: No Visual Changes: No - Lochia Lochia Amount: Small 10-25 ml Lochia Color: Rubra/Red - Abdomen Description: Soft Hernia Present: No Fundal Description: Firm, Midline Fundal Height: u/u - u/2 Objective-Diagnostic Laboratory: 01/16/19 05:00 Assessment and Plan(PN) - Assessment and Plan (1) Obstetrical laceration, second degree Is this a current diagnosis for this admission?: Yes (2) Vaginal delivery Is this a current diagnosis for this admission?: Yes - Time Spent with Patient Time with patient: Less than 15 minutes Medications reviewed and adjusted accordingly: Yes - Disposition Anticipated Discharge: Home Within: within 24 hours
[2019-01-17] MEDS: DOCUSATE SODIUM 100 MG CAPSULE PO SCH ×2 (10:41→17:18)
[2019-01-17] MEDS: SENNOSIDES/DOCUSATE 8.6-50 MG 1 EACH TABLET PO SCH (10:41)
[2019-01-17 10:49] LABS: HEMATOCRIT 33.3 % (36.0-47.0); MEAN CORPUSCULAR HEMOGLOBIN 28.5 pg (27.0-33.4); MEAN CORPUSCULAR HGB CONC 33.2 g/dL (32.0-36.0); MEAN CORPUSCULAR VOLUME 86 fl (80-97); PLATELET COUNT 197 10^3/uL (150-450); RED BLOOD COUNT 3.88 10^6/uL (3.72-5.28); RED CELL DISTRIBUTION WIDTH 13.7 % (11.5-14.0); WHITE BLOOD COUNT 8.8 10^3/uL (4.0-10.5)
[2019-01-18] MEDS: IBUPROFEN 800 MG TABLET PO SCH (05:27)
--- NOTE | 2019-01-18 09:14 | PDOC DISCHARGE SUMMARY ---
Final Diagnosis Discharge Date: 01/18/19 - PP day #2, doing well, , no complaints - Final Diagnosis (1) Normal course Is this a current diagnosis for this admission?: Yes (2) Obstetrical laceration, second degree Is this a current diagnosis for this admission?: Yes (3) Vaginal delivery Is this a current diagnosis for this admission?: Yes Discharge Data - Discharge Medication Prescriptions: Ibuprofen [Motrin 800 mg Tablet] 800 mg PO Q8 #60 tablet Home Medications: Pnv No.95/Ferrous Fum/Folic AC [ Multivitamin Tablet] 1 tab PO DAILY 09/03/18 Ranitidine HCl [Zantac] 150 mg PO DAILY 01/06/19 Ibuprofen [Motrin 800 mg Tablet] 800 mg PO Q8 #60 tablet 01/18/19 Reason(s) for Admission: Onset of Labor Procedures: Ultrasound Intrapartum Procedure(s): Spontaneous Vaginal Delivery Complication(s): Laceration-Vaginal Laceration-Degree: 2nd - Diagnosis Test Laboratory: Temp Pulse Resp BP Pulse Ox 98.3 F 71 10 L 105/67 100 01/18/19 07:54 01/18/19 07:54 01/18/19 07:54 01/18/19 07:54 01/18/19 07:54 01/16/19 01/16/19 01/17/19 04:08 05:00 10:43 RBC 4.37 3.88 Hgb 12.3 11.0 L Hct 36.7 33.3 L Urine Opiates Screen NEGATIVE - Discharge information/Instructions Discharge Activity: Activity As Tolerated, No Lifting Over 10 Pounds, Pelvic Rest Discharge Diet: As Tolerated, Regular Disposition: HOME, SELF-CARE Follow up with: [facility] in: 4, Weeks
[2019-01-18] MEDS: DOCUSATE SODIUM 100 MG CAPSULE PO SCH (10:03)
[2019-01-18] MEDS: SENNOSIDES/DOCUSATE 8.6-50 MG 1 EACH TABLET PO SCH (10:04)
[2019-01-18 10:18] VITALS: BP 108/64
--- NOTE | 2019-01-23 09:03 | Delivery Summary ---
Del Sum A-C Datetime Report Generated by CPN: 01/23/2019 09:03 DELIVERY PERSONNEL DELIVERY PERSONNEL: [id number] Delivery Doctor:: Adelaida Mckay MD Anesthesiologist:: Maulik Grimm MD Labor and Delivery Nurse:: Chantelle De RNsimonizer Nurse:: Sunni Salinas RN Pinion Polisher/INDUSTRIAL ACCOUNTANT: Summer Webster, TESTER ARMATURE OR FIELDS MATERNAL INFORMATION Delivery Anesthesia: Epidural Medications After Delivery: Pitocin Drip 20 Units/1000ml NSS Maternal Complications: None Provider Comments: VFI delivered in DAVID presentation. No nuchal cord. shoulders and body delivered without difficulty. Cord doubly clamped and cut. Placenta delivered intact spontaneously. FF at U. Mother and baby stable upon provider leaving the room. 2nd degree perineal laceration repaired in usual fashion. LABOR SUMMARY EDC: 01/20/2019 00:00 No. Babies in Womb: 1 Attempted: No Labor Anesthesia: Epidural LABOR INFORMATION Reason for Induction: Not Applicable Onset of Labor: 01/15/2019 23:00 Complete Dilatation: 01/16/2019 10:37 Oxytocin: Augmentation Group B Beta Strep: negative Antibiotics # of Doses: 0 Steroids Given: None Reason Steroids Not Administered: Not Applicable MEMBRANES Membranes Rupture Method: Spontaneous Rupture of Membranes: 01/15/2019 23:00 Length of Rupture (hr): 11.97 Amniotic Fluid Color: Clear Amniotic Fluid Amount: Moderate Amniotic Fluid Odor: Normal STAGES OF LABOR Stage 1 hr: 11 Stage 1 min: 37 Stage 2 hr: 0 Stage 2 min: 21 Stage 3 hr: 0 Stage 3 min: 3 Total Time in Labor hr: 12 Total Time in Labor min: 1 VAGINAL DELIVERY Episiotomy: None Laceration #1: Perineal Laceration Extension #1: Second Degree Laceration #2: Periurethral Laceration Extension #2: N/A Laceration Repair: Yes Laceration Repair Note: 2nd degree perineal laceration repaired in usual fashion. periurethral repaired for hemostasis Sponge Count Correct: Yes Sharps Count Correct: Yes CSECTION DELIVERY Primary Indication: N/A Secondary Indication: N/A CSection Incidence: N/A Labor: N/A Elective: N/A CSection Incision: N/A BABY A INFORMATION Infant Delivery Date/Time: 01/16/2019 10:58 Method of Delivery: Vaginal Born in Route : No : N/A Forceps: N/A Vacuum Extraction: N/A Shoulder Dystocia : No PRESENTATION/POSITION BABY A Presentation: Cephalic Cephalic Presentation: Vertex Breech Presentation: N/A PLACENTA INFORMATION BABY A Placenta Delivery Time : 01/16/2019 11:01 Placenta Method of Delivery: Spontaneous Placenta Status: Delivered SCORES BABY A Heart Rate 1 min: >100 bpm Resp Effort 1 min: Good Cry Reflex Irritability 1 min: Cough or Sneeze or Pulls Away Muscle Tone 1 min: Active Motion Color 1 min: Body [place], Extremities Blue Resuscitation Effort 1 min: Tactile Stimulation SCORE 1 MIN: 9 Heart Rate 5 min: >100 bpm Resp Effort 5 min: Good Cry Reflex Irritability 5 min: Cough or Sneeze or Pulls Away Muscle Tone 5 min: Active Motion Color 5 min: Body [place], Extremities Blue Resuscitation Effort 5 min: N/A SCORE 5 MIN: 9 INFORMATION BABY A Gestational Age at Delivery: 39.3 Gestational Status: Full Term- 39- 40.6 Weeks Infant Outcome : Liveborn Condition : Stable Sex: Female IDENTIFICATION BABY A Infant Verification Date/Time: 01/16/2019 11:07 ID Band Number: [id number] Mother's Name Verified: Yes RN Verifying Infant: B Baidy RN/ J Monk RN WEIGHT/LENGTH BABY A Infant Birthweight (gm): 3102 Infant Weight (lb): 6 Infant Weight (oz): 13 Length (in): 19.75 Length (cm): 50.17 CORD INFORMATION BABY A No. Cord Vessels: 3 Nuchal Cord : N/A Cord Blood Taken: Yes-For Eval (Mom's Blood Type - or O+) Infant Suction: None ASSESSMENT BABY A Complications: None Physical Findings at Delivery: Within Normal Limits Infant Respirations: Appears Normal Wire Coating Machine Operator/ALS Called : No Infant Care By: B Baidy RN Transferred To: Remains with Mother BABY B INFORMATION : N/A SIGNATURES Signature: with User ID: [email or web address]
== END 2019-01-18 13:51 | disposition home or self-care (01) | DRG 807 ==
LOC: LC 03:58 → LR 04:45 → 2S 13:14
PROVIDERS: ADMIT Obstetrics & Gynecology; ATTEND Obstetrics & Gynecology
PROC: 10E0XZZ Delivery of Products of Conception, External Approach (ICD-10-PCS; principal; 2019-01-16)
PROC: 0KQM0ZZ Repair Perineum Muscle, Open Approach (ICD-10-PCS; 2019-01-16)
DX: O70.1 Second degree perineal laceration during delivery (principal); Z37.0 Single live birth; Z88.0 Allergy status to penicillin; Z88.1 Allergy status to other antibiotic agents; Z91.018 Allergy to other foods; Z91.010 Allergy to peanuts; Z3A.39 39 weeks gestation of pregnancy
CPT/HCPCS: 36415; 80307; 81005; 84112; 85025; 85027; 86592; 86850; 86900; 86901; J2370; J2405; J2590; J3010; J3490

== ENCOUNTER 2019-01-24 16:24 | Emergency (ER) | payer MEDICAID | END 2019-01-24 16:35 | disposition left against medical advice (07) | LOC: ER 16:24 | DX: Z53.21 Procedure and treatment not carried out due to patient leaving prior to being seen by health care provider (principal) ==

== ENCOUNTER → 2019-08-10 | Outpatient (CLI) | payer MEDICAID | LOC: OD 11:43 | PROVIDERS: ATTEND Internal Medicine | DX: J02.9 Acute pharyngitis, unspecified (principal) | CPT/HCPCS: 87070; 87077; 87880 ==

== ENCOUNTER 2020-05-31 16:14 | Emergency (ER) | payer MEDICAID ==
--- NOTE | 2020-05-31 18:04 | ER Document Report ---
HPI - HPI Time Seen by Provider: 05/31/20 18:03 Pain Level: 3 Notes: 24-year-old female patient presented to the emergency department concern for sore throat. She reports history of strep throat, states she gets it every year. She went to an urgent care where she had a rapid strep done which was negative. Patient reports she cannot go back to work at the [employer] until she started on antibiotics. She states every time she has a throat culture done it always comes up positive. She denies any fever. - ROS Systems Reviewed and Negative: Yes All other systems reviewed and negative - EENT EENT: REPORTS: Sore Throat - REPRODUCTIVE Reproductive: DENIES: : Past Medical History - General Information source: Patient - Social History Smoking Status: Never Smoker Frequency of alcohol use: None Drug Abuse: None Family History: Reviewed & Not Pertinent - Medical History Medical History: Negative Renal/ Medical History: Denies: Hx Peritoneal Dialysis Surgical Hx: Negative Vertical Provider Document - CONSTITUTIONAL Notes: PHYSICAL EXAMINATION: GENERAL: Well-appearing, well-nourished and in no acute distress. HEAD: Atraumatic, normocephalic. EYES: Pupils equal round extraocular movements intact, conjunctiva are normal. ENT: Nares patent, oropharynx erythematous, mild tonsillar swelling noted bilaterally, exudates noted, uvula midline, no evidence of peritonsillar abscess. NECK: Normal range of motion LUNGS: No respiratory distress Musculoskeletal: Normal range of motion NEUROLOGICAL: Normal speech, normal gait. PSYCH: Normal mood, normal affect. SKIN: Warm, Dry, normal turgor, no rashes or lesions noted. - INFECTION CONTROL TRAVEL OUTSIDE OF THE [place] IN LAST 30 DAYS: No Course - Re-evaluation Re-evalutation: Patient appears well, nontoxic, swallowing and speaking without difficulty. She will be treated at this time for pharyngitis. The patient's emergency department workup and current diagnosis were explained to the patient and or family. Follow-up instructions were provided. Medications if prescribed were discussed. Instructions for when to return to the emergency department including specific worrisome symptoms were discussed with the patient and/or family. - Vital Signs Vital signs: Temp Pulse Resp BP Pulse Ox 98.2 F 120 H 16 121/77 100 05/31/20 16:17 05/31/20 16:17 05/31/20 16:17 05/31/20 16:17 05/31/20 16:17 - Laboratory Results Critical Laboratory Results Reviewed: No Critical Results - Radiology Results Critical Radiology Results Reviewed: No Critical Results Discharge - Discharge Clinical Impression: Pharyngitis Qualifiers: Pharyngitis/tonsillitis etiology: unspecified etiology Qualified Code(s): J02.9 - Acute pharyngitis, unspecified Condition: Stable Disposition: HOME, SELF-CARE Instructions: Sore Throat ([facility]) Additional Instructions: Please take medication as prescribed. Push fluids. Return if any new or worsening symptoms. Prescriptions: Clindamycin HCl 300 mg PO TID #30 capsule Referrals: GLEN HERRERA MD [Primary Care Provider] - Follow up as needed
[2020-05-31] MEDS ORDERED: DEXAMETHASONE 4 MG TABLET PO ONE (18:38)
[2020-05-31] MEDS ORDERED: CLINDAMYCIN HCL 150 MG CAPSULE PO ONE (19:11)
[2020-05-31 19:25] VITALS: BP 128/78
== END 2020-05-31 19:23 | disposition home or self-care (01) ==
LOC: ER 16:14
DX: J02.9 Acute pharyngitis, unspecified (principal)
CPT/HCPCS: 99283; 87070; 87880; J3490 ×2; J8540